=== PATIENT | male | born 1975 | race Two or more races ===

== ENCOUNTER 2018-08-08 23:33 | Emergency (ER) | payer OTHER ==
[~2018-08-08] VITALS: Ht 172.7 cm; Wt 75.3 kg
[2018-08-09] MEDS ORDERED: AMOX-CLAV 875-1 EACH PO (01:18)
[2018-08-09] MEDS ORDERED: INTESTINEX680 M1 PO (01:18)
== END 2018-08-09 01:39 | disposition home or self-care (01) ==
LOC: ER 23:33
DX: S61.541A Puncture wound with foreign body of right wrist, initial encounter (principal); W26.8XXA Contact with other sharp object(s), not elsewhere classified, initial encounter; Y93.89 Activity, other specified; Y92.89 Other specified places as the place of occurrence of the external cause; Y99.8 Other external cause status